=== PATIENT | female | born 1945 | race Caucasian/White ===

== ENCOUNTER → 2019-07-01 08:38 | Outpatient (BNVA) | payer MEDICARE, SELFPAY | PROVIDERS: Family Provider Nurse Practitioner Family; PCP Nurse Practitioner Family; Visit Provider Family Medicine | DX: I10 Essential (primary) hypertension (principal) | CPT/HCPCS: 80053; 80061; 85025 ==

== ENCOUNTER → 2019-07-29 10:17 | Outpatient (BNVA) | payer MEDICARE, SELFPAY | PROVIDERS: Family Provider Nurse Practitioner Family; PCP Nurse Practitioner Family; Visit Provider Family Medicine | DX: Z01.419 Encounter for gynecological examination (general) (routine) without abnormal findings (principal); Z12.31 Encounter for screening mammogram for malignant neoplasm of breast; I10 Essential (primary) hypertension | CPT/HCPCS: 82044; 88175 ==

== ENCOUNTER 2019-09-03 10:22 | Emergency (ER) | payer MEDICARE, SELFPAY ==
[2019-09-03 10:25] VITALS: BMI 30.2
--- NOTE | 2019-09-03 10:28 | XRR_ITS ---
PROCEDURE INFORMATION: Exam: XR Sternum Exam date and time: 09/03/2019 10:28 AM Age: 74 years old Clinical indication: Injury or trauma; Initial encounter; Prior surgery; Surgery date: 6+ months; Surgery type: Valve; Patient HX: Fall onto L shoulder this am TECHNIQUE: Imaging protocol: XR sternum. Views: 2 or more views. COMPARISON: No relevant prior studies available. FINDINGS: Bones/joints: Osteopenia and degenerative change. Osteochondral calcifications. Old right rib fracture. No gross evidence for acute bony injury in the poorly visualized sternum. CT can be performed for improved characterization if clinically indicated. Heart/Mediastinum: Aortic valve replacement. Vasculature: Ectasia of the thoracic aorta. Soft tissues: Unremarkable as visualized. XR/XR sternum min 2V [id number] IMPRESSION: No gross evidence for acute bony injury in the poorly visualized sternum.
--- NOTE | 2019-09-03 10:28 | XRR_ITS ---
PROCEDURE INFORMATION: Exam: XR Left Shoulder Exam date and time: 09/03/2019 10:28 AM Age: 74 years old Clinical indication: Injury or trauma; Initial encounter; Blunt trauma (contusions or hematomas; Left; Patient HX: Fall onto L shoulder this am TECHNIQUE: Imaging protocol: XR Left shoulder. Views: 2 or more views. COMPARISON: No relevant prior studies available. FINDINGS: Bones/joints: Acute fracture involving the left humeral neck and greater tuberosity, with lateral displacement of the greater tuberosity. Osteopenia and degenerative change. Soft tissues: Mild soft tissue swelling. XR/XR shoulder LT min 2V* [id number] IMPRESSION: Acute fracture involving the left humeral neck and greater tuberosity, with lateral displacement of the greater tuberosity.
--- NOTE | 2019-09-03 10:28 | XRR_ITS ---
PROCEDURE INFORMATION: Exam: XR Left Humerus Exam date and time: 09/03/2019 11:23 AM Age: 74 years old Clinical indication: Injury or trauma; Initial encounter; Blunt trauma (contusions or hematomas; Arm, upper; Left; Patient HX: Fall onto L shoulder this am TECHNIQUE: Imaging protocol: XR Left humerus Views: 2 or more views. COMPARISON: No relevant prior studies available. FINDINGS: Bones/joints: InAcute fracture involving the left humeral neck and greater tuberosity, with lateral displacement of the greater tuberosity. Osteopenia and degenerative change. Soft tissues: Mild soft tissue swelling. XR/[place] [id number] IMPRESSION: InAcute fracture involving the left humeral neck and greater tuberosity, with lateral displacement of the greater tuberosity.
--- NOTE | 2019-09-03 10:28 | W.ED.FALL ---
HPI - Fall General: Chief Complaint: Fall Stated Complaint: FALL, LEFT SHOULDER PAIN Time Seen by Provider: 09/03/19 10:24 History of Present Illness: HPI Narrative: Patient complained about sternal pain and left shoulder pain that was sustained after a fall this morning when she got up to take her dog out and she tripped over the little gait in the doorway landing on her chest and left shoulder area. Does not hurt to breathe but she says it does hurt to raise her left arm. Patient has history of high blood pressure and her pressure today 230/120 and she states that usually this high when she is in a doctor's office and she is not concerned about it she has consistent readings like that iona vasquez MD complaint: fall Onset (ago): hour(s) Fall from: standing Fall witnessed: no Place fall occurred: home Loss of consciousness: None Prolonged down time: no Symptoms prior to fall: none Context: tripped/slipped Location of injury: other (Sternum) Location of injury - extremities: Left: shoulder Associated symptoms-after fall: Reports chest pain (Sternum); Denies abdominal pain or headache(s) Review of Systems Const: Denies: fever, chills or body aches Eyes: Denies: change in vision or blurry vision ENMT: Denies: throat pain or nasal congestion Card: Reports: chest pain (Sternum); Denies: shortness of breath on exertion Resp: Denies: shortness of breath, productive cough or non-productive cough GI: Denies: abdominal pain, nausea or vomiting Musc: Reports: extremity pain (Left shoulder) Skin/Breast: Denies: rash Neuro: Denies: headache Psych: Denies: anxiety or depression Дмитрий/Lymph: Denies: easy bruising PFSH ED PFSH: Medical History (Updated 09/03/19 @ 10:32 by Amparo Ellis RN) History of cervical cancer Hypertension, essential Surgical History H/O: hysterectomy due to cancer History of aortic valve replacement History of cholecystectomy History of lumpectomy of left breast Social History Smoking and tobacco status: former smoker Alcohol intake: never Physical Exam Const: COMMON NORMALS: no apparent distress, average body habitus and oriented x3 HENMT: COMMON NORMALS: normocephalic HEAD & SCALP: normal to inspection and normocephalic FACE & SINUS: normal facial exam Eye: COMMON NORMALS: conjunctivae normal GENERAL EYE: normal appearance of both eyes CONJUNCTIVA: Yes conjunctivae normal Neck/C-Spine: COMMON NORMALS: no JVD Chest: COMMONS NORMALS: inspection of chest normal CHEST: Yes tenderness (Midsternum) Resp: COMMON NORMALS: normal respiratory effort and clear to auscultation bilaterally AUSCULTATION: clear to auscultation bilaterally Cardio: COMMON NORMALS: no JVD, regular rate and regular rhythm RATE: regular rate RHYTHM: regular rhythm GI: COMMON NORMALS: normal to inspection, nondistended, normoactive bowel sounds Extremity: COMMON NORMALS: normal to inspection and full ROM LEFT UPPER EXTREMITY: Yes shoulder joint (Tender) and Yes upper arm Neuro: COMMON NORMALS: oriented x3 Course Vital Signs: Vital signs: Vital Signs Temperature 97.7 F 09/03/19 10:30 Pulse Rate 103 H 09/03/19 10:30 Respiratory Rate 16 09/03/19 10:30 Blood Pressure 238/125 09/03/19 10:30 Pulse Oximetry 96 09/03/19 10:30 MDM - Fall MDM Narrative: Medical decision making narrative: Patient has a sling at home that she is going to use actually is in the car and her will put it on when she leaves here and she is not wanting any pain medicine. Discharge Plan Discharge Prescriptions: No Action amlodipine [Norvasc] 5 mg tablet 5 mg PO BID Qty: 180 RF: 1 losartan 25 mg tablet 25 mg PO DAILY Qty: 90 RF: 1 Coding Level of Care Code ED Bull Bucker for Chg Fwd Exam Comprehensive
[2019-09-03 10:30] VITALS: BP 238/125; PULSE 103; RESP 16; TEMP 36.5; O2SAT 96
--- NOTE | 2019-09-03 10:56 | PC.NURSE ---
Pt to xray
[2019-09-03 12:17] VITALS: BP 216/102; PULSE 98; RESP 16; O2SAT 98
--- NOTE | 2019-09-05 12:07 | DCPLANNER ---
pre press manager had message to schedule a follow up appointment for patient with ortho. pre press manager called the ortho clinic, spoke with Pat, gave clinic patients information. pre press manager was told that patients information would be printed and reviewed. Clinic will call case management rn and patient with appointment information.
--- NOTE | 2019-09-06 08:18 | DCPLANNER ---
Patient has an appointment scheduled for Friday, September 06, [address] at 8:[address] Mayers. Clinic will call patient with appointment information.
--- NOTE | 2019-10-04 15:34 | DCPLANNER ---
Patient did attend appointment scheduled for 09.06.19 with ortho.
== END 2019-09-03 12:26 | disposition home or self-care (01) ==
PROVIDERS: Emergency Provider Nurse Practitioner Family; Family Provider Nurse Practitioner Family; PCP Nurse Practitioner Family
DX: M25.512 Pain in left shoulder (principal); Z85.41 Personal history of malignant neoplasm of cervix uteri; I10 Essential (primary) hypertension; Z87.891 Personal history of nicotine dependence; Z91.81 History of falling
CPT/HCPCS: 12345; 71120; 73030; 73060; 99281; 99282

== ENCOUNTER → 2019-09-06 08:42 | Outpatient (BNVA) | payer MEDICARE, SELFPAY | PROVIDERS: Family Provider Nurse Practitioner Family; PCP Nurse Practitioner Family; Referring Provider Nurse Practitioner Family; Visit Provider Specialist | DX: S42.212A Unspecified displaced fracture of surgical neck of left humerus, initial encounter for closed fracture (principal) | CPT/HCPCS: 73030; L3670 ==

== ENCOUNTER 2019-09-06 10:45 | Outpatient (CLI) | payer MEDICARE, SELFPAY | END 2019-09-06 10:46 | disposition home or self-care (01) | LOC: SPT 10:45 | PROVIDERS: Family Provider Nurse Practitioner Family; PCP Nurse Practitioner Family; Visit Provider Specialist | DX: Z46.89 Encounter for fitting and adjustment of other specified devices (principal); S42.213A Unspecified displaced fracture of surgical neck of unspecified humerus, initial encounter for closed fracture; X58.XXXA Exposure to other specified factors, initial encounter | CPT/HCPCS: L3670 ==

== ENCOUNTER → 2019-09-19 11:18 | Outpatient (BNVA) | payer MEDICARE, SELFPAY | PROVIDERS: Family Provider Nurse Practitioner Family; PCP Nurse Practitioner Family; Visit Provider Specialist | DX: T14.8XXA Other injury of unspecified body region, initial encounter (principal); S42.212A Unspecified displaced fracture of surgical neck of left humerus, initial encounter for closed fracture; X58.XXXA Exposure to other specified factors, initial encounter | CPT/HCPCS: 73030 ==

== ENCOUNTER → 2019-10-19 08:49 | Outpatient (BNVA) | payer MEDICARE, SELFPAY | PROVIDERS: Family Provider Nurse Practitioner Family; PCP Nurse Practitioner Family; Visit Provider Specialist | DX: S42.215A Unspecified nondisplaced fracture of surgical neck of left humerus, initial encounter for closed fracture (principal); X58.XXXA Exposure to other specified factors, initial encounter | CPT/HCPCS: 73030 ==

== ENCOUNTER 2019-11-30 08:16 | Outpatient (CLI) | payer MEDICARE, SELFPAY ==
--- NOTE | 2019-11-30 08:26 | XRR_ITS ---
PROCEDURE INFORMATION: Exam: XR Left Shoulder Exam date and time: 11/30/2019 8:38 AM Age: 74 years old Clinical indication: Condition or disease; Patient HX: Follow up humerus fracture doi: 09/03/19. Still some limited rom and weakness, but improving TECHNIQUE: Imaging protocol: XR Left shoulder. Views: 2 or more views. COMPARISON: CR XR shoulder LT min 2V* [id number] 10/19/2019 8:54 AM FINDINGS: Bones/joints: Continued healing of the left humeral surgical neck and greater tuberosity fractures. These are nearly completely healed. No dislocation. The acromioclavicular and glenohumeral joints are within normal limits. Soft tissues: No acute soft tissue abnormality. XR/XR shoulder LT min 2V* [id number] IMPRESSION: Near complete healing of the proximal left humeral fractures.
== END 2019-11-30 08:17 | disposition home or self-care (01) ==
LOC: RAD 08:22
PROVIDERS: PCP Family Medicine; Visit Provider Specialist
DX: S42.252D Displaced fracture of greater tuberosity of left humerus, subsequent encounter for fracture with routine healing (principal); X58.XXXD Exposure to other specified factors, subsequent encounter
CPT/HCPCS: 73030

== ENCOUNTER 2023-04-15 10:30 | Outpatient (CLI) | payer MEDICARE, SELFPAY ==
--- NOTE | 2023-04-15 10:38 | MR_ITS ---
WS: [id number] MRI CERVICAL SPINE NONCONTRAST HISTORY: CHRONIC NECK PAIN COMPARISON: None available. Technique: Multiplanar, multisequence noncontrast imaging of the cervical spine. Normal cervical alignment. Mild disc space narrowing and desiccation throughout the cervical spine. Signal within the cervical cord is normal. Visualized posterior fossa is unremarkable. Craniocervical junction, C1 and C2 relationship, odontoid process and soft tissues are normal. C2-C3: Mild annular disc bulging and facet arthritis. No stenosis. C3-C4: Mild annular disc bulging and bilateral foraminal osteophytes. Mild bilateral foraminal stenos is. Slightly greater RIGHT foramen narrowing due to osteophyte disease C4-C5: Osteophytic ridging and very mild disc bulging. Bilateral facet joint arthritis. Mild foramina l narrowing, LEFT greater than RIGHT. C5-C6: Mild annular disc bulging and osteophytic ridging with facet arthritis. Very minimal bilateral foraminal stenosis. C6-C7: Shallow central disc protrusion with bilateral osteophytic ridging. No central stenosis. Mild foraminal stenosis and mild facet arthritis. C7-T1: Normal. Paraspinal soft tissue are normal. IMPRESSION: 1. No high-grade central stenosis. 2. Multilevel osteophytic ridging and facet arthritis resulting in foraminal narrowing. Mild bilatera l foraminal stenosis from C3-4 through C6-7. No high-grade stenosis
== END 2023-04-15 10:31 | disposition home or self-care (01) ==
LOC: RAD 10:30
PROVIDERS: PCP Family Medicine; Visit Provider Nurse Practitioner Family
DX: M47.812 Spondylosis without myelopathy or radiculopathy, cervical region (principal); M25.78 Osteophyte, vertebrae; M48.02 Spinal stenosis, cervical region; G89.29 Other chronic pain
CPT/HCPCS: 72141

== ENCOUNTER → 2023-08-18 12:54 | Outpatient (BNVA) | payer MEDICARE, SELFPAY | PROVIDERS: PCP Family Medicine; Visit Provider Dermatology | DX: L57.0 Actinic keratosis (principal); L82.1 Other seborrheic keratosis; D22.5 Melanocytic nevi of trunk; L81.4 Other melanin hyperpigmentation; I78.8 Other diseases of capillaries; Z80.0 Family history of malignant neoplasm of digestive organs | CPT/HCPCS: 17000; 99213 ==